=== PATIENT | male | born 1940 | race Caucasian/White ===

== ENCOUNTER 2023-03-05 14:54 | Emergency (ER) | payer OTHER ==
[2023-03-05] MEDS ORDERED: EPINEPHrine 1:10,000 [1 MG/10 ML] SYRINGE ONE (15:15)
[2023-03-05] MEDS ORDERED: IOHEXOL 300 MG/ML 100 ML VIAL ONE (15:24)
[2023-03-05] MEDS ORDERED: SODIUM BICARBONATE 50 MEQ/50 ML VIAL ONE (15:24)
[2023-03-05] MEDS ORDERED: LIDOCAINE/PF 1% 30 ML VIAL ONE (15:24)
[2023-03-05] MEDS ORDERED: HEPARIN SODIUM 1000 UNITS/NS 1,000 ML ONE (15:24)
[2023-03-05 15:30] VITALS: PULSE 49; RESP 20; O2SAT 91
[2023-03-05] MEDS ORDERED: PROPOFOL 1000 MG/ISO-OSM 100 ML IV PRN (15:30)
[2023-03-05] MEDS ORDERED: DOPamine 400MG/D5W[STANDARD] 250 ML IV PRN (15:30)
[2023-03-05 15:49] LABS: HEMOGLOBIN 14.3 g/dL (13.5-17.5); MEAN CORPUSCULAR HEMOGLOBIN 29.9 pg (26.0-34.0); MEAN CORPUSCULAR HGB CONC 30.4 G/dL (31.0-37.0); MEAN CORPUSCULAR VOLUME 99 fL (80-100); PLATELET COUNT (AUTO) 184 K/uL (150-450); RED BLOOD CELL COUNT(AUTO) 4.77 MIL/uL (4.50-5.90); RED CELL DISTRIBUTION WIDTH 15.6 % (11.5-14.5)
[2023-03-05 15:54] LABS: CALCIUM, TOTAL 8.1 mg/dL (8.8-10.5); CREATININE 1.59 mg/dL (0.60-1.30); POTASSIUM 3.5 mmol/L (3.5-5.1)
[2023-03-05 16:00] LABS: ALBUMIN 2.6 g/dL (3.4-5.0); BILIRUBIN,TOTAL 0.8 mg/dL (0.1-1.0); TOTAL PROTEIN, SERUM 5.7 g/dL (6.4-8.2)
[2023-03-05 16:17] LABS: BAND NEUTROPHILS % (MANUAL) 12 % (0-5); BASOPHILS % (MANUAL) 1 % (0-2); LYMPHOCYTES % (MANUAL) 56 % (22-44); METAMYELOCYTES % 1 % (0-0); MONOCYTES % (MANUAL) 3 % (2-9); SEGMENTED NEUTROPHILS % 27 % (40-70)
== END 2023-03-05 20:00 ==
LOC: EMS 14:55 → EDBD 14:55 → EMS 20:00
DX: I46.9 Cardiac arrest, cause unspecified (principal)
CPT/HCPCS: 99291; 94002; 92950; 31500; 80053; 84484; 85025; 36415; 93005; J0171; J1644; J3490 ×2; Q9967; 99285